=== PATIENT | male | born 1955 | race Caucasian/White ===

== ENCOUNTER 2020-03-25 07:49 | Day surgery (SDC) | payer BC ==
[2020-03-25] VITALS (9 sets, daily range): BP systolic 82–116; BP diastolic 43–81
[~2020-03-25] VITALS: Ht 180.3 cm; Wt 89.7 kg
[2020-03-25] MEDS ORDERED: normal saline 1000ml 1,000 ML IV SCH ×2 (08:25→11:05)
[2020-03-25 08:51] LABS: BASOPHILS % (AUTO) 0.8 % (0-1); EOSINOPHILS # (AUTO) 0.1 X10'3 (0-0.9); EOSINOPHILS % (AUTO) 1.7 % (0-6); HEMATOCRIT 44.6 % (42.0-52.0); HEMOGLOBIN 15.3 g/dl (14.0-17.9); LYMPHOCYTES # (AUTO) 1.8 X10'3 (1.1-4.8); LYMPHOCYTES % (AUTO) 29.6 % (21-51); MEAN CORPUSCULAR HEMOGLOBIN 32.5 PG (27.0-31.0); MEAN CORPUSCULAR HGB CONC 34.4 g/dL (33.0-36.5); MEAN CORPUSCULAR VOLUME 94.6 FL (78-98); MEAN PLATELET VOLUME 8.3 FL (7.4-10.4); MONOCYTES # (AUTO) 0.6 X10'3 (0-0.9); MONOCYTES % (AUTO) 10.4 % (2-12); NEUTROPHILS # (AUTO) 3.5 X10'3 (1.8-7.7); NEUTROPHILS % (AUTO) 57.5 % (42-75); PLATELET COUNT 230 X10'3 (140-440); RED BLOOD COUNT 4.71 X10'6 (4.70-6.10); RED CELL DISTRIBUTION WIDTH 12.9 % (11.5-14.5); WHITE BLOOD COUNT 6.1 X10'3 (4.5-11.0)
[2020-03-25] MEDS ORDERED: ATOR40TA72 PO (09:00)
[2020-03-25] MEDS ORDERED: LOSA25TA41 PO (09:00)
[2020-03-25] MEDS ORDERED: SPIR25TA5 PO (09:00)
[2020-03-25] MEDS ORDERED: METO25TA6 PO (09:00)
[2020-03-25] MEDS ORDERED: AMIT50TA3 PO (09:00)
[2020-03-25] MEDS ORDERED: ASPI-1130 PO (09:00)
[2020-03-25] MEDS ORDERED: ERGO400C PO (09:00)
[2020-03-25 09:01] LABS: ANION GAP 8 (8-16); BLOOD UREA NITROGEN 25 MG/DL (7-18); CALCIUM 8.9 MG/DL (8.5-10.1); CHLORIDE 107 MMOL/L (99-107); CREATININE 1.19 MG/DL (0.60-1.10); GLUCOSE 121 MG/DL (70-104); POTASSIUM 4.2 MMOL/L (3.5-5.1); SODIUM 141 MMOL/L (135-145); TOTAL CARBON DIOXIDE 25.6 MMOL/L (24-32); eGFR 61 ML/MIN
[2020-03-25] MEDS ORDERED: LISI-604 PO (09:02)
[2020-03-25] MEDS ORDERED: NITR0.3T10 SL (09:02)
[2020-03-25] MEDS ORDERED: vancomycin 1,000mg inj ONE (09:11)
[2020-03-25] MEDS ORDERED: midazolam 2 mg/2 ml injection ONE ×2 (09:11→10:02)
[2020-03-25] MEDS ORDERED: LIDOcaine 1% W/epiNEPHrine 1:100,000 20ml vial ONE (09:11)
[2020-03-25] MEDS ORDERED: ceFAZolin 1000mg inj ONE (09:11)
[2020-03-25] MEDS ORDERED: fentaNYL/PF 50MCG/1 ML 2ML syringe ONE ×2 (09:11→10:02)
[2020-03-25] MEDS ORDERED: proCHLORperazine 10 MG/2 ml inj ONE (09:30)
== END 2020-03-25 13:15 | disposition home or self-care (01) ==
LOC: SSTAY O 07:49
PROVIDERS: ATTEND Internal Medicine Cardiovascular Disease
DX: I25.5 Ischemic cardiomyopathy (principal); I25.118 Atherosclerotic heart disease of native coronary artery with other forms of angina pectoris; I25.2 Old myocardial infarction; E78.5 Hyperlipidemia, unspecified; I10 Essential (primary) hypertension; I45.89 Other specified conduction disorders; Z95.1 Presence of aortocoronary bypass graft; Z79.899 Other long term (current) drug therapy; Z79.82 Long term (current) use of aspirin; Z82.49 Family history of ischemic heart disease and other diseases of the circulatory system
CPT/HCPCS: 33249; 36415; 71045; 80048; 83735; 85025; 85610; 93005; 93641; 99152; 99153; C1722; C1777; C1894; J0690; J0780; J2250; J3010; J3370; A4620

== ENCOUNTER 2020-08-17 08:36 | Day surgery (SDC) | payer BC ==
[2020-08-10 16:25] LABS: CLARITY,URINE CLEAR (Clear); COLOR,URINE YELLOW (Yellow); GLUCOSE, URINE NEGATIVE (Neg); KETONES,URINE NEGATIVE (Neg); LEUKOCYTE ESTERASE ,URINE NEGATIVE (Neg); NITRITES, URINE NEGATIVE (Neg); OCCULT BLOOD,URINE NEGATIVE (Neg); PH,URINE 5.5 (4.8-8.0); PROTEIN,URINE NEGATIVE (Neg); UA COLLECTION TYPE CLN CATCH MIDSTREAM; UROBILINOGEN,URINE 0.2 E.U/dL (0.2-1.0)
[2020-08-10 16:26] LABS: BASOPHILS % (AUTO) 0.6 % (0-1); EOSINOPHILS # (AUTO) 0.2 X10'3 (0-0.9); EOSINOPHILS % (AUTO) 2.2 % (0-6); LYMPHOCYTES # (AUTO) 2.1 X10'3 (1.1-4.8); LYMPHOCYTES % (AUTO) 29.7 % (21-51); MEAN CORPUSCULAR VOLUME 94.2 FL (78-98); MEAN PLATELET VOLUME 8.4 FL (7.4-10.4); MONOCYTES # (AUTO) 0.7 X10'3 (0-0.9); MONOCYTES % (AUTO) 10.2 % (2-12); NEUTROPHILS % (AUTO) 57.3 % (42-75); PRE OP HEMATOCRIT 41.9 % (42.0-52.0); PRE OP HEMOGLOBIN 14.2 g/dL (14.0-17.9); PRE OP PLATELET COUNT 242 X10'3 (140-440); RED BLOOD COUNT 4.45 X10'6 (4.70-6.10); RED CELL DISTRIBUTION WIDTH 13.1 % (11.5-14.5)
[2020-08-10 16:40] LABS: PRE OP INR 1.1 INR; PRE OP PROTIME 10.9 SECONDS (9.0-12.0)
[2020-08-10 16:44] LABS: ALBUMIN 4.1 G/DL (3.4-5.0); ALBUMIN/GLOBULIN RATIO 1.1 (1.1-1.5); ALKALINE PHOSPHATASE 76 IU/L (46-116); BLOOD UREA NITROGEN 30 MG/DL (7-18); BUN/CREATININE RATIO 22.6 (5.4-32.0); CALCIUM 9.1 MG/DL (8.5-10.1); CHLORIDE 104 MMOL/L (99-107); CREATININE 1.33 MG/DL (0.60-1.10); PRE OP ALT 71 U/L (30-65); PRE OP ANION GAP 7 (8-16); PRE OP AST 33 U/L (10-37); PRE OP BILIRUB, TOTAL 0.8 MG/DL (0.0-1.0); PRE OP GLUCOSE 104 MG/DL (70-104); PRE OP POTASSIUM 4.2 MMOL/L (3.4-5.1); PRE OP SODIUM 139 MMOL/L (135-145); TOTAL CARBON DIOXIDE 27.8 MMOL/L (24-32); TOTAL PROTEIN 7.7 G/DL (6.4-8.2); eGFR 54 ML/MIN
[~2020-08-17] VITALS: Ht 180.3 cm; Wt 89.8 kg
[2020-08-17] VITALS (21 sets, daily range): BP systolic 130–158; BP diastolic 58–90
[~2020-08-17 08:36] MED LIST: ASPI-1397 PO; ATOR40TA72 PO; BUPIVAcaine/PF 2.5 mg/ml (0.25%) 30ml vial ONE; ERGO400C PO; FURO20TA4 PO; LOSA25TA41 PO; METO25TA6 PO; NITR0.3T10 SL; SPIR25TA5 PO; ceFAZolin 2gm in dextrose, iso 50 ML IV ONE; famotidine 20mg tablet PO ONE; ringers solution, lacted 1,000 ML IV SCH
[2020-08-17] MEDS ORDERED: dexamethasone sod phosphate 10mg/ml inj ONE (11:16)
[2020-08-17] MEDS ORDERED: rocuronium 10mg/ml inj IV ONE ×2 (11:16→11:19)
[2020-08-17] MEDS ORDERED: sevoflurane 250ml liquid IH ONE (11:16)
[2020-08-17] MEDS ORDERED: fentaNYL/PF 50MCG/1 ML 2ML syringe ONE ×2 (11:18)
[2020-08-17] MEDS ORDERED: propofol inj 20 ML IV ONE (11:19)
[2020-08-17] MEDS ORDERED: midazolam 2 mg/2 ml injection ONE (11:19)
[2020-08-17] MEDS ORDERED: ePHEDrine 50MG/ML INJ. ONE (11:43)
[2020-08-17] MEDS ORDERED: ringers solution, lacted 1,000 ML IV SCH (12:40)
[2020-08-17] MEDS ORDERED: ondansetron/PF 4mg/2ml inj IV PRN (12:40)
[2020-08-17] MEDS ORDERED: meperidine/PF 25mg/ml syringe IV PRN ×3 (12:40)
[2020-08-17] MEDS ORDERED: proCHLORperazine 10 MG/2 ml inj IV PRN (12:40)
[2020-08-17] MEDS ORDERED: morphine 2 MG/ML inj. syringe IV PRN (12:40)
[2020-08-17] MEDS ORDERED: morphine 4 MG/ML inj SYRINge IV PRN (12:40)
[2020-08-17] MEDS ORDERED: ondansetron/PF 4mg/2ml inj ONE (13:29)
[2020-08-17] MEDS ORDERED: glycopyrrolate 0.2mg/ml inj ONE (13:38)
[2020-08-17] MEDS ORDERED: neostigmine methylsulfate 1 MG/ML 10ml vial ONE (13:38)
--- NOTE | 2020-08-17 13:57 | NUR ---
RECEIVED FROM OR VIA [facility] ACCOMPANIED BY ANESTHESIOLOGIST DR CATALAN, REPORT GIVEN. PT DROWSY BUT AROUSES AND DENIES PAIN AT THIS TIME.20 GAUGE PIV R HAND PATENT AND RUNNING LR AT 1OO ML/HR. LG BANDAIDS X 4 TO ABD CDI, ABD SOFT.`VSS, PPULSES PALPABLE, BRISK CAP REFILL, SKIN PINK AND WARM, RESTING COMFORTABLY.
--- NOTE | 2020-08-17 17:07 | NUR ---
PT AWAKE AND ALERT WITH A PAIN LEVEL OF 4 AT THIS TIME.20 GAUGE PIV R HAND DC/D WITH CATH TIP INTACT. LG BANDAIDS X 4 TO ABD CDI, ABD SOFT.`VSS, PPULSES PALPABLE, BRISK CAP REFILL, SKIN PINK AND WARM. TOLERATING FLUIDS, ABLE TO DRESS SELF AND AMBULATE WITHOUT ASSIST. DISCHARGE INSTRUCTIONS GIVEN AND PT VERBALIZES UNDERSTANDING. TRANSPORTED VIA WHEELCHAIR TO SPOUSE IN PRIVATE VEHICLE TO HOME.
== END 2020-08-17 17:07 | disposition home or self-care (01) ==
LOC: PAS 08:36
PROVIDERS: ATTEND Surgery
DX: K43.2 Incisional hernia without obstruction or gangrene (principal); M62.08 Separation of muscle (nontraumatic), other site; Z20.828 Contact with and (suspected) exposure to other viral communicable diseases; I10 Essential (primary) hypertension; I25.10 Atherosclerotic heart disease of native coronary artery without angina pectoris; I25.5 Ischemic cardiomyopathy; I25.2 Old myocardial infarction; E78.5 Hyperlipidemia, unspecified; Z77.22 Contact with and (suspected) exposure to environmental tobacco smoke (acute) (chronic); Z79.01 Long term (current) use of anticoagulants; Z79.899 Other long term (current) drug therapy; Z98.890 Other specified postprocedural states; Z90.49 Acquired absence of other specified parts of digestive tract; Z95.1 Presence of aortocoronary bypass graft; Z95.810 Presence of automatic (implantable) cardiac defibrillator
CPT/HCPCS: 36415; 49654; 71046; 80053; 81003; 82948; 85025; 85610; 85730; 87635; C1758; C1781; J1100; J2175; J2250; J2405; J2704; J2710; J3010; J3490; S2900; A4215; A4618; J7120

== ENCOUNTER 2021-03-13 09:39 | Day surgery (SDC) | payer OTHER ==
[2021-03-13] VITALS (11 sets, daily range): BP systolic 120–149; BP diastolic 54–91
[~2021-03-13] VITALS: Ht 180.3 cm; Wt 94.2 kg
[~2021-03-13 09:39] MED LIST changes: -BUPIVAcaine/PF 2.5 mg/ml (0.25%) 30ml vial ONE; +LOP25T PO; -METO25TA6 PO; -ceFAZolin 2gm in dextrose, iso 50 ML IV ONE; -famotidine 20mg tablet PO ONE; -ringers solution, lacted 1,000 ML IV SCH
[2021-03-13] MEDS ORDERED: midazolam 1 mg/ML 2ml injection ONE ×3 (10:09→11:50)
[2021-03-13] MEDS ORDERED: nitroGLYCERIN-Tridil 50MG/D5W 250 ML IV ONE (10:09)
[2021-03-13] MEDS ORDERED: fentaNYL/PF 50MCG/1 ML 2ML syringe ONE (10:09)
[2021-03-13] MEDS ORDERED: iohexol 350 MG/ML 50ML vial IV ONE (10:10)
[2021-03-13] MEDS ORDERED: LIDOcaine 1% (10mg/ml)w/preservative injection 20ml MDV ONE (10:10)
[2021-03-13] MEDS ORDERED: iohexol 350MG/ML 100ml bottle IV ONE ×2 (10:10→11:53)
[2021-03-13] MEDS ORDERED: SACU1TAB PO (10:20)
[2021-03-13] MEDS ORDERED: CARV3.122 PO (10:20)
[2021-03-13] MEDS ORDERED: diphenhydrAMINE 25mg capsule PO PRN (10:20)
[2021-03-13] MEDS ORDERED: AMIO200T61 PO (10:20)
[2021-03-13] MEDS ORDERED: normal saline 1,000 ML IV SCH (10:20)
[2021-03-13] MEDS ORDERED: heparin 1,000unit/ml 10ml vial 10 ML ONE (10:21)
[2021-03-13 10:41] LABS: BASOPHILS % (AUTO) 0.7 % (0-1); EOSINOPHILS # (AUTO) 0.1 X10'3 (0-0.9); EOSINOPHILS % (AUTO) 2.2 % (0-6); HEMOGLOBIN 16.4 g/dl (14.0-17.9); LYMPHOCYTES # (AUTO) 1.5 X10'3 (1.1-4.8); MEAN CORPUSCULAR HEMOGLOBIN 31.6 PG (27.0-31.0); MEAN CORPUSCULAR HGB CONC 34.1 g/dL (33.0-36.5); MEAN CORPUSCULAR VOLUME 92.7 FL (78-98); MEAN PLATELET VOLUME 8.2 FL (7.4-10.4); MONOCYTES # (AUTO) 0.5 X10'3 (0-0.9); MONOCYTES % (AUTO) 8.1 % (2-12); NEUTROPHILS # (AUTO) 4.2 X10'3 (1.8-7.7); PLATELET COUNT 247 X10'3 (140-440); RED BLOOD COUNT 5.18 X10'6 (4.70-6.10); RED CELL DISTRIBUTION WIDTH 13.9 % (11.5-14.5); WHITE BLOOD COUNT 6.3 X10'3 (4.5-11.0)
[2021-03-13 10:49] LABS: ALBUMIN 4.2 G/DL (3.4-5.0); ANION GAP 10 (8-16); BLOOD UREA NITROGEN 24 MG/DL (7-18); BUN/CREATININE RATIO 17.5 (5.4-32.0); CALCIUM 9.2 MG/DL (8.5-10.1); CHLORIDE 108 MMOL/L (99-107); CREATININE 1.37 MG/DL (0.60-1.10); GLUCOSE 142 MG/DL (70-104); MAGNESIUM 2.3 MG/DL (1.5-2.4); POTASSIUM 4.1 MMOL/L (3.5-5.1); SODIUM 143 MMOL/L (135-145); TOTAL CARBON DIOXIDE 25.2 MMOL/L (24-32); eGFR 52 ML/MIN
[2021-03-13] MEDS ORDERED: acetaminophen 325mg tablet PO PRN (13:00)
[2021-03-13] MEDS ORDERED: normal saline 1000ml 1,000 ML IV SCH (13:00)
[2021-03-13] MEDS ORDERED: HYDROcodone/acetaminophen 10/325mg tab PO PRN (13:00)
[2021-03-13] MEDS ORDERED: proCHLORperazine 10 MG/2 ml inj IV PRN (13:00)
[2021-03-13] MEDS ORDERED: HYDROcodone/acetaminophen 5mg/325mg tablet PO PRN (13:00)
[2021-03-13] MEDS ORDERED: ondansetron/PF 4mg/2ml inj IV PRN (13:00)
== END 2021-03-13 16:00 | disposition home or self-care (01) ==
LOC: SSTAY O 09:39
PROVIDERS: ATTEND Internal Medicine Cardiovascular Disease
DX: I25.810 Atherosclerosis of coronary artery bypass graft(s) without angina pectoris (principal); I10 Essential (primary) hypertension; I25.5 Ischemic cardiomyopathy; E78.5 Hyperlipidemia, unspecified; I25.2 Old myocardial infarction; Z79.899 Other long term (current) drug therapy; Z98.890 Other specified postprocedural states; Z79.82 Long term (current) use of aspirin; Z95.810 Presence of automatic (implantable) cardiac defibrillator; Z82.49 Family history of ischemic heart disease and other diseases of the circulatory system
CPT/HCPCS: 36415; 80048; 83735; 85025; 85610; 92920; 93005; 93459; 99152; 99153; C1725; C1751; C1760; C1769; C1894; J1644; J2001; J2250; J3010; J7030; Q0163; Q9967; 92921; A4620; A6258; J3490

== ENCOUNTER 2021-04-24 09:35 | Day surgery (SDC) | payer OTHER ==
[2021-04-24] VITALS (8 sets, daily range): BP systolic 113–167; BP diastolic 56–89
[~2021-04-24] VITALS: Ht 180.3 cm; Wt 93.3 kg
[~2021-04-24 09:35] MED LIST changes: +AMIO200T61 PO; +CARV3.122 PO; -ERGO400C PO; -LOP25T PO; -LOSA25TA41 PO; -NITR0.3T10 SL; +SACU1TAB PO; -SPIR25TA5 PO
[2021-04-24] MEDS ORDERED: cefazolin/dext.iso 2gm/100ml 100 ML IV ONE (10:35)
[2021-04-24] MEDS ORDERED: vancomycin/NS 1 GM ADD-VANTAGE 250 ML X 1 DOSE IV ONE (10:35)
[2021-04-24 10:37] LABS: BASOPHILS # (AUTO) 0.1 X10'3 (0-0.2); BASOPHILS % (AUTO) 0.8 % (0-1); EOSINOPHILS # (AUTO) 0.2 X10'3 (0-0.9); EOSINOPHILS % (AUTO) 3.4 % (0-6); HEMATOCRIT 44.2 % (42.0-52.0); HEMOGLOBIN 14.9 g/dl (14.0-17.9); LYMPHOCYTES # (AUTO) 1.4 X10'3 (1.1-4.8); LYMPHOCYTES % (AUTO) 23.5 % (21-51); MEAN CORPUSCULAR HEMOGLOBIN 31.4 PG (27.0-31.0); MEAN CORPUSCULAR HGB CONC 33.8 g/dL (33.0-36.5); MEAN CORPUSCULAR VOLUME 92.7 FL (78-98); MEAN PLATELET VOLUME 8.4 FL (7.4-10.4); MONOCYTES # (AUTO) 0.5 X10'3 (0-0.9); NEUTROPHILS # (AUTO) 3.9 X10'3 (1.8-7.7); NEUTROPHILS % (AUTO) 64.3 % (42-75); PLATELET COUNT 245 X10'3 (140-440); RED BLOOD COUNT 4.76 X10'6 (4.70-6.10); RED CELL DISTRIBUTION WIDTH 13.6 % (11.5-14.5); WHITE BLOOD COUNT 6.1 X10'3 (4.5-11.0)
[2021-04-24 10:46] LABS: ALBUMIN 3.8 G/DL (3.4-5.0); ANION GAP 11 (8-16); BLOOD UREA NITROGEN 22 MG/DL (7-18); BUN/CREATININE RATIO 16.5 (5.4-32.0); CALCIUM 8.5 MG/DL (8.5-10.1); CHLORIDE 108 MMOL/L (99-107); CREATININE 1.33 MG/DL (0.60-1.10); GLUCOSE 144 MG/DL (70-104); MAGNESIUM 2.4 MG/DL (1.5-2.4); POTASSIUM 3.9 MMOL/L (3.5-5.1); SODIUM 142 MMOL/L (135-145); TOTAL CARBON DIOXIDE 22.9 MMOL/L (24-32); eGFR 54 ML/MIN
[2021-04-24] MEDS ORDERED: LIDOCAINE 2% w/EPI 1:100:000 30mL injection MDV**cath lab 1 only ONE (12:19)
[2021-04-24] MEDS ORDERED: vancomycin 1,000mg inj ONE (12:20)
[2021-04-24] MEDS ORDERED: fentaNYL/PF 50MCG/1 ML 2ML syringe ONE (12:20)
[2021-04-24] MEDS ORDERED: midazolam 1 mg/ML 2ml injection ONE ×3 (12:20→13:08)
[2021-04-24] MEDS ORDERED: iohexol 350 MG/ML 50ML vial IV ONE (13:13)
[2021-04-24] MEDS ORDERED: HYDROcodone/acetaminophen 5mg/325mg tablet PO PRN (14:10)
[2021-04-24] MEDS ORDERED: normal saline 1000ml 1,000 ML IV SCH (14:10)
[2021-04-24] MEDS ORDERED: HYDROcodone/acetaminophen 10/325mg tab PO PRN (14:10)
== END 2021-04-24 15:55 | disposition home or self-care (01) ==
LOC: SSTAY O 09:35
PROVIDERS: ATTEND Internal Medicine Cardiovascular Disease
DX: Z45.02 Encounter for adjustment and management of automatic implantable cardiac defibrillator (principal); I42.0 Dilated cardiomyopathy; I25.5 Ischemic cardiomyopathy; I25.118 Atherosclerotic heart disease of native coronary artery with other forms of angina pectoris; I47.2 Ventricular tachycardia; I49.01 Ventricular fibrillation; I25.2 Old myocardial infarction; E78.5 Hyperlipidemia, unspecified; I10 Essential (primary) hypertension; Z95.1 Presence of aortocoronary bypass graft; Z98.890 Other specified postprocedural states; Z79.82 Long term (current) use of aspirin; Z79.899 Other long term (current) drug therapy; Z82.49 Family history of ischemic heart disease and other diseases of the circulatory system
CPT/HCPCS: 33241; 33249; 36415; 71045; 80048; 83735; 85025; 85610; 93005; 99152; 99153; C1721; C1894; C1898; J2250; J3010; J3370; Q9967; 33216; 33263; A4620; A6258

== ENCOUNTER 2025-07-21 10:40 | Outpatient (CLI) | payer MEDICARE, MEDICAID ==
[~2025-07-21 10:40] MED LIST changes: -AMIO200T61 PO; +CLOP75TA34 PO
--- NOTE | 2025-07-21 18:55 | CARDIOLOGY REPORT ---
APPROVED REPORT EXAM: Comprehensive 2D, Doppler, and color-flow Echocardiogram. Patient Location: OUT-PATIENT Blood Pressure: 105/ 59 mmHg Heart Rate: 68 bpm Rhythm: SINUS Indications ISCHEMIC HEART DISEASE CABG X 4 2018 [id number] Annual Greenhouse Manager: Komal PICKARD MD Previous echo: 02/2024 GO EF: 25-30%; 4 CH ENL; modLAE; mTR; trivAI; trivMR 2D Dimensions RVDd 3.4 cm LVOT Diameter 2.13 (1.8-2.4cm) M-Mode Dimensions Left Atrium(MM) 5.92 (2.5-4.0cm) IVSd 0.92 (0.7-1.1cm) LVDd 7.38 (4.0-5.6cm) Aortic Root 2.46 (2.2-3.7cm) PWd 0.99 (0.7-1.1cm) IVSs 1.44 cm MV EPSS 2.5 (<0.5cm) LVDs 6.16 (2.0-3.8cm) FS (%) 16 % PWs 1.08 cm ESV(Teich) 191.3 ml LVEF(%) 30 (>50%) Aortic Valve AoV Peak Blaise. 98.3 cm/s AoV VTI 20.3 cm AO Peak GR. 3.8 mmHg AO Mean GR. 2 mmHg LVOT VTI 16.31 cm LVOT Peak Blaise. 83.5 cm/s RONIT (VMAX) 3.03 cm2 RONIT (VTI) 2.87 cm2 Mitral Valve MV E Velocity 55.3 cm/s MV DECEL TIME 209 ms MV A Velocity 55.5 cm/s MV PHT 67 ms E/A Ratio 1.0 MVA (PHT) 3.27 cm2 TDI E/Medial E' 17.8 Tricuspid Valve TR P. Velocity 283 cm/s RAP ESTIMATE 10 mmHg TR Peak Gr. 32 mmHg RVSP 42 mmHg Pulmonary Vein S2 Velocity 52.02 cm/s PVa Duration 146 msec LEFT VENTRICLE Moderately increased LV size with severely decreased function. Mild concentric hypertrophy. Grade 2 Pseudonormal (moderate increase in filling pressure) LVEF is 25-30%. GLS -7 %. RIGHT VENTRICLE RV is mildly increased in size with mildly reduced function. Elevated right heart pressures with an RVSP of 42 mmHg. Pacemaker wire in right heart. ATRIA Left atrium is severely dilated. Right atrium is moderately dilated. Mobile interatrial septum - no flow detected. AORTIC VALVE Trileaflet AV appears mildly sclerotic without stenosis or insufficiency. MITRAL VALVE Mild MV annular calcification without stenosis. Moderate, multijet, eccentric regurgitation. TRICUSPID VALVE TV appears structurally normal with mild regurgitation. PULMONIC VALVE Normal PV without stenosis, physiologic insufficiency. GREAT VESSELS Aortic root is normal in size. Ascending aorta is normal in size. PERICARDIUM Normal pericardium. No effusion. Conclusion Moderately increased LV size with severely decreased function. Mild concentric hypertrophy. Grade 2 Pseudonormal (moderate increase in filling pressure). LVEF is 25-30%. GLS -7 %. RV is mildly increased in size with mildly reduced function. Elevated right heart pressures with an RVSP of 42 mmHg. Pacemaker wire in right heart. Left atrium is severely dilated. Right atrium is moderately dilated. Mobile interatrial septum - no flow detected. Trileaflet AV appears mildly sclerotic without stenosis or insufficiency. Mild MV annular calcification without stenosis. Moderate, multijet, eccentric regurgitation. TV appears structurally normal with mild regurgitation. Normal pericardium. No effusion.
== END 2025-07-21 23:59 | disposition home or self-care (01) ==
LOC: RAD 10:40
PROVIDERS: ATTEND Internal Medicine Cardiovascular Disease
DX: I08.8 Other rheumatic multiple valve diseases (principal); I25.5 Ischemic cardiomyopathy
CPT/HCPCS: 93306